=== PATIENT | male | born 1980 | race Two or more races ===

== ENCOUNTER 2016-11-17 12:00 | Emergency (ER) | payer MEDICAID ==
[2016-11-17 12:10] VITALS: BP 111/65
--- NOTE | 2016-11-17 12:42 | ER Document Report ---
ED Neck/Back Problem - General Chief Complaint: Back Pain Stated Complaint: LOWER BACK PAIN Time Seen by Provider: 11/17/16 12:25 Notes: 36 yo healthy male c/o constant mid back pain x 2 weeks. aggravated with bending. pt works as lead painter. denies trauma. no fever, no radiculopathy, no paresthesia, no bowel/bladder dysfunction. denies recent tattoos, injection, IV drug use. no hx/ cancer TRAVEL OUTSIDE OF THE [place] IN LAST 30 DAYS: No - HPI Patient complains to provider of: Pain Quality of pain: Achy Recent injury: No Associated symptoms: None. denies: Fever, Incontinence, Motor loss, Numbness/ tingling, Radiation to arm, Radiation to leg, Unable to urinate, Lower back pain - Related Data Allergies/Adverse Reactions: No Known Allergies Allergy (Verified 11/17/16 12:08) Past Medical History - General Information source: Patient - Social History Smoking Status: Current Every Day Smoker Cigarette use (# per day): Yes - 1/2 ppd Frequency of alcohol use: Social Drug Abuse: None Lives with: Family Family History: Reviewed & Not Pertinent Patient has suicidal ideation: No Patient has homicidal ideation: No Pulmonary Medical History: Denies: Hx Asthma, Hx Pneumonia Renal/ Medical History: Denies: Hx Peritoneal Dialysis - Immunizations Immunizations up to date: Yes Hx Diphtheria, Pertussis, Tetanus Vaccination: Yes Review of Systems - Review of Systems Constitutional: No symptoms reported EENT: No symptoms reported Cardiovascular: No symptoms reported Respiratory: No symptoms reported Gastrointestinal: No symptoms reported Genitourinary: No symptoms reported Male Genitourinary: No symptoms reported Musculoskeletal: See HPI Skin: No symptoms reported Hematologic/Lymphatic: No symptoms reported Neurological/Psychological: No symptoms reported Physical Exam - Vital signs Vitals: Temp Pulse Resp BP Pulse Ox 98.1 F 69 14 111/65 97 11/17/16 12:09 11/17/16 12:09 11/17/16 12:09 11/17/16 12:09 11/17/16 12:09 Interpretation: Normal - General General appearance: Appears well, Alert - HEENT Head: Normocephalic, Atraumatic Eyes: Normal Pupils: PERRL - Respiratory Respiratory status: No respiratory distress Chest status: Nontender Breath sounds: Normal Chest palpation: Normal - Cardiovascular Rhythm: Regular Heart sounds: Normal auscultation Murmur: No - Abdominal Inspection: Normal Distension: No distension Bowel sounds: Normal Tenderness: Nontender Organomegaly: No organomegaly - Back Back: Tender - mid thoracic spinal and paraspinal tenderness. neg SLT, neg heel /toe. walks without difficulty. able to change position without difficulty - Extremities General upper extremity: Normal inspection, Nontender, Normal color, Normal ROM , Normal temperature General lower extremity: Normal inspection, Nontender, Normal color, Normal ROM , Normal temperature, Normal weight bearing. No: Mariano's sign - Neurological Neuro grossly intact: Yes Cognition: Normal Orientation: AAOx4 [place] Coma Scale Eye Opening: Spontaneous [place] Coma Scale Verbal: Oriented [place] Coma Scale Motor: Obeys Commands [place] Coma Scale Total: 15 Speech: Normal Motor strength normal: LUE, RUE, LLE, RLE Sensory: Normal - Psychological Associated symptoms: Normal affect, Normal mood - Skin Skin Temperature: Warm Skin Moisture: Dry Skin Color: Normal Course - Re-evaluation Re-evalutation: 11/17/16 12:46 H&P c/w nonspecific acute low back pain. no neurologic deficits or red flags identified. no signs of cord compression, no hx/o metastatic disease, no fever , no trauma. low clinical suspicion for emergent condition. no emergent imaging indicated. will treat symptomatically. pt stable for discharge and agreeable with plan - Vital Signs Vital signs: Temp Pulse Resp BP Pulse Ox 98.1 F 69 14 111/65 97 11/17/16 12:09 11/17/16 12:09 11/17/16 12:09 11/17/16 12:09 11/17/16 12:09 Discharge - Discharge Clinical Impression: Mid back pain Condition: Stable Disposition: HOME, SELF-CARE Instructions: Ice Packs ([facility]), Warm Packs ([facility]), Low Back Pain ([facility]), Ultram ( [facility]), Ibuprofen (General) ([facility]), Muscle Relaxers ([facility]) Additional Instructions: Your history and physical are consistent with a mid back strain No xrays are indicated today Take medications as prescribed Consider chiropractic evaluation Follow up with your primary care Return to ER for any worsening Prescriptions: Ibuprofen [Motrin 800 Mg Tablet] 800 mg PO Q6H #20 tablet Methocarbamol [Robaxin 500 Mg Tablet] 1,000 mg PO Q6 #30 tablet Tramadol HCl [Ultram 50 mg Tablet] 50 mg PO ASDIR PRN #20 tablet PRN Reason: Forms: Return to Work Referrals: CRISTINE FRASER MD [NO LOCAL MD] - Follow up as needed
== END 2016-11-17 12:40 | disposition home or self-care (01) ==
LOC: ER 12:00
DX: M54.9 Dorsalgia, unspecified (principal); M54.5 Low back pain; F17.210 Nicotine dependence, cigarettes, uncomplicated
CPT/HCPCS: 99283

== ENCOUNTER 2017-02-17 12:56 | Emergency (ER) | payer MEDICAID ==
[2017-02-17] MEDS ORDERED: IBUPROFEN 800 MG TABLET PO ONE (14:33)
--- NOTE | 2017-02-17 14:34 | ER Document Report ---
ED Extremity Problem, Lower - General Chief Complaint: Foot Pain Stated Complaint: BACK/FOOT PAIN Time Seen by Provider: 02/17/17 13:59 Mode of Arrival: Ambulatory Information source: Patient Notes: 36-year-old male presents to ED for complaint of something hurting the bottom of his left foot. He states he does not remember stepping on anything or injuring it but it is slowly progressed to getting more more painful over the last few days. He also has chronic back pain for the last 3 years states she has been evaluated and was referred to orthopedics but they tell him he needs to go see his primary doctor first and he states he does not know who his primary doctor is. Patient is on Medicaid will check with patient access and give the patient his primary care doctor name and phone number. TRAVEL OUTSIDE OF THE [place] IN LAST 30 DAYS: No - HPI Patient complains to provider of: Pain Location: Back - Chronic, Foot - Left bottom of his foot front pad Occurred: Last week Onset/Duration: Gradual Quality of pain: Achy - Tonic backache, Sharp Severity: Moderate Pain Level: 4 Context: Other - Painful ambulation Recent injury: No Associated symptoms: Painful ambulation, Other - Chronic back pain Exacerbated by: Movement, Walking Relieved by: Nothing - Related Data Allergies/Adverse Reactions: No Known Allergies Allergy (Verified 02/17/17 13:00) Past Medical History - General Information source: Patient - Social History Smoking Status: Current Every Day Smoker Cigarette use (# per day): Yes - Half pack per day Chew tobacco use (# tins/day): No Smoking Education Provided: Yes - Less than 1 minute Frequency of alcohol use: Social Drug Abuse: denies: Marijuana - States he stopped smoking marijuana Occupation: [employer] Lives with: Spouse/Significant other Family History: Arthritis, Hypertension. denies: CAD, COPD, CVA, DM, Hyperlipidemia, Malignancy, Thyroid Disfunction Patient has suicidal ideation: No Patient has homicidal ideation: No - Past Medical History Cardiac Medical History: Reports: None Pulmonary Medical History: Reports: None EENT Medical History: Reports: None Neurological Medical History: Reports: None Endocrine Medical History: Reports: None Renal/ Medical History: Reports: None Malignancy Medical History: Reports None GI Medical History: Reports: None Musculoskeltal Medical History: Reports Hx Arthritis, Reports Hx Musculoskeletal Deformity - Chronic back pain, Reports Hx Musculoskeletal Trauma Skin Medical History: Reports None Psychiatric Medical History: Reports: None Traumatic Medical History: Reports: None Infectious Medical History: Reports: None Surgical Hx: Negative Past Surgical History: Reports: None - Immunizations Immunizations up to date: Yes Hx Diphtheria, Pertussis, Tetanus Vaccination: Yes Review of Systems - Review of Systems Constitutional: No symptoms reported EENT: No symptoms reported Cardiovascular: No symptoms reported Respiratory: No symptoms reported Gastrointestinal: No symptoms reported Genitourinary: No symptoms reported Male Genitourinary: No symptoms reported Musculoskeletal: Back pain - Chronic back pain, Other - Pain to the bottom of his left foot front pad. Skin: Other - Hard pads it is painful to the front pad of his left foot Hematologic/Lymphatic: No symptoms reported Neurological/Psychological: No symptoms reported -: Yes All other systems reviewed and negative Physical Exam - Vital signs Vitals: Temp Pulse Resp BP Pulse Ox 98.5 F 65 20 132/86 H 95 02/17/17 13:00 02/17/17 13:00 02/17/17 13:00 02/17/17 13:00 02/17/17 13:00 Interpretation: Normal - General General appearance: Appears well, Alert - HEENT Head: Normocephalic, Atraumatic Eyes: Normal Pupils: PERRL - Respiratory Respiratory status: No respiratory distress Chest status: Nontender Breath sounds: Normal Chest palpation: Normal - Cardiovascular Rhythm: Regular Heart sounds: Normal auscultation Murmur: No - Abdominal Inspection: Normal Distension: No distension Bowel sounds: Normal Tenderness: Nontender Organomegaly: No organomegaly - Back Back: Normal, Nontender - Extremities General upper extremity: Normal inspection, Nontender, Normal color, Normal ROM , Normal temperature General lower extremity: Normal inspection, Nontender, Normal color, Normal ROM , Normal temperature, Normal weight bearing. No: Mariano's sign Foot: Tender, No evidence of FB, Other - What appears to be a callus that is tender to touch on his left bottom of his foot front pad of his foot. No: Abrasion, Deformity, Ecchymosis, Edema, Instability, Laceration, Metatarsal compress. pain, Nail injury, Navicular tenderness, Puncture wound, Tender 5th metatarsal, Unable to bear weight - Neurological Neuro grossly intact: Yes Cognition: Normal Orientation: AAOx4 [place] Coma Scale Eye Opening: Spontaneous [place]iseo Coma Scale Verbal: Oriented [place] Coma Scale Motor: Obeys Commands [place] Coma Scale Total: 15 Speech: Normal Motor strength normal: LUE, RUE, LLE, RLE Sensory: Normal - Psychological Associated symptoms: Normal affect, Normal mood - Skin Skin Temperature: Warm Skin Moisture: Dry Skin Color: Normal Course - Re-evaluation Re-evalutation: 02/17/17 15:07 Will x-ray foot to ensure there is no foreign body noted. Patient was treated with ibuprofen. Patient was given name and number of his primary care which his family care and the phone number was written on a paper for the patient to follow-up. Patient to follow-up with his primary doctor to get a referral for his back specialist and also a senior mobile application developer for his pain in his foot and his back. Will review x-rays and discussed them with patient. - Vital Signs Vital signs: Temp Pulse Resp BP Pulse Ox 98.3 F 67 16 130/84 H 98 02/17/17 15:57 02/17/17 15:57 02/17/17 15:57 02/17/17 15:57 02/17/17 15:57 - Diagnostic Test Radiology reviewed: Image reviewed, Reports reviewed Discharge - Discharge Clinical Impression: Foot pain, left, Chronic back pain greater than 3 months duration Condition: Stable Disposition: HOME, SELF-CARE Additional Instructions: You were seen today for pain to your left bottom of the foot with no known injury. He states you have had calluses on your foot and toes in the past and the [employer] senior mobile application developer and had been removed. Try using [id number] pads for corns and calluses and follow-up with the senior mobile application developer for this pain to your left foot. You also have chronic back pain and had been referred to a back specialist. I have given you the name and number of your primary care doctor which is [facility]. Please call them tomorrow and schedule a appointment so that she can get referrals to podiatry and your back specialist. Chronic Pain Control Stress, inactivity, and depression make pain more severe regardless of the cause of the pain. Stress and poor physical condition can cause pain such as headaches and backache. Relaxation: Rest in a quiet place with your eyes closed for 20 minutes twice daily. Concentrate on a pleasant image, or simply "feel" your breathing. Clear your mind. Stress management: Deal with your "stressors." Either take action, or eliminate the stressor from your life. Don't let things hang over you. Accept those things you can't change. Nutrition: Eat small, balanced meals -- don't skip, don't overeat. Meals should be high-carbohydrate, low-sugar, low-fat. Exercise: Exercise helps painful conditions and eases stress. Get 30 minutes of moderate exercise, five days a week. Do an activity that does not flare your pain. Precautions: Pain which continues to disrupt daily activities, or which changes in nature, requires a medical evaluation. Pain Clinic referral is available. We do not manage chronic pain in the Emergency Department. We will try to appropriately help you through an acute flare of your chronic painful condition , but for on-going chronic pain that does not improve, you will need to see your private doctor or aircraft painter apprentice. We do not provide repeated medication management of chronic painful conditions. If you wish, we can provide the name of local pain management physicians. Chronic Back Pain Chronic back pain (pain persisting longer than three months) is a common problem. A medical evaluation can look for herniated disc, arthritis, osteoporosis, tumors, and infections. But at least half the time, there's no obvious treatable cause. Anxiety and depression tend to worsen back pain. Ibuprofen or other anti-inflammatory medicine can help. A heating pad, used for 15-20 minutes at a time, can ease pain. For this type of back pain, narcotic medicines should be avoided. Muscle relaxers are rarely helpful unless you're having spasms. Activity is important. Find an aerobic exercise program that your back can tolerate. Too much rest makes back pain worse. Specific back exercises are usually prescribed to strengthen the back and abdominal muscles. Often, a physical therapist can help. Avoid heavy lifting, working while bent over, or standing with both knees straight. Most back pain patients do better with a firm mattress. If new symptoms of a "herniated disc" (radiation of pain, numbness, or tingling down the back of the leg or weakness in the leg) occur, you should be re-examined. Anti-Inflammatory Medication You have received a prescription for an antiinflammatory agent. This is an excellent, safe drug for pain control. In addition, it has potent antiinflammatory effects which are beneficial, especially in the treatment of injuries, arthritis, or tendonitis. It's best to take this medicine with food. Persons with ulcer disease or allergy to aspirin should notify their physician of this before taking this drug. Take the medication exactly as prescribed. Don't take additional doses unless instructed to do so by your doctor. If you develop wheezing, shortness of breath, hives, faintness, stomach pain, vomiting, or dark black stools, return for re-evaluation at once. FOLLOW-UP CARE: If you have been referred to a physician for follow-up care, call the physician s office for an appointment as you were instructed or within the next two days. If you experience worsening or a significant change in your symptoms, notify the physician immediately or return to the Emergency Department at any time for re-evaluation. Prescriptions: Ibuprofen 600 mg PO Q6HP PRN #20 tablet PRN Reason: Forms: Elevated Blood Pressure, Smoking Cessation Education Referrals: HERMES BAZAN DPM [ACTIVE STAFF] - Follow up as needed
--- NOTE | 2017-02-17 15:26 | RADIOLOGY REPORT (SQ) ---
EXAM DESCRIPTION: FOOT LEFT COMPLETE COMPLETED DATE/TIME: 02/17/2017 3:00 pm REASON FOR STUDY: pain possible foreign body COMPARISON: None. NUMBER OF VIEWS: Three views. TECHNIQUE: AP, lateral and oblique radiographic images acquired of the left foot. LIMITATIONS: None. FINDINGS: MINERALIZATION: Normal. 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 BONES: No acute fracture or dislocation. No worrisome bone lesions. JOINTS: No effusions. SOFT TISSUES: There is focal soft tissue swelling near the left 5th metatarsal head. No radiopaque f oreign body is identified. No soft tissue gas. OTHER: No other significant finding. IMPRESSION: Soft tissue swelling at the left 5th metatarsal head/ MTP joint. No underlying radiopaq ue foreign body or soft tissue gas. TECHNICAL DOCUMENTATION: JOB ID: [id number] [employer]- All Rights Reserved
[2017-02-17 15:58] VITALS: BP 130/84
== END 2017-02-17 15:58 | disposition home or self-care (01) ==
LOC: ER 12:56
DX: M79.672 Pain in left foot (principal); G89.29 Other chronic pain; M54.9 Dorsalgia, unspecified; F17.210 Nicotine dependence, cigarettes, uncomplicated
CPT/HCPCS: 99283; 73630; J3490

== ENCOUNTER 2017-08-02 13:34 | Emergency (ER) | payer MEDICAID ==
[2017-08-02 13:40] VITALS: BP 123/89
[2017-08-02] MEDS ORDERED: CYCLOBENZAPRINE HCL 10 MG TABLET PO ONE (15:26)
[2017-08-02] MEDS ORDERED: IBUPROFEN 600 MG TABLET PO ONE (15:26)
--- NOTE | 2017-08-02 15:29 | ER Document Report ---
ED General - General Chief Complaint: Low Back Pain Stated Complaint: BACK INJURY Time Seen by Provider: 08/02/17 15:19 TRAVEL OUTSIDE OF THE [place] IN LAST 30 DAYS: No - HPI Notes: 36-year-old male with a history of intermittent back pain and previous injury presents with left lower back pain. Patient states yesterday he was lifting something heavy, noted some gradual onset of back pain, much worse today. Achy sharp, radiates down his left leg. No numbness or tingling, no bowel or bladder dysfunction. There is no history of malignancy, no history of bowel or bladder dysfunction. No fever or constitutional symptoms. No history of IV drug abuse. No other modifying factors, no other associated symptoms, no other provocative or palliative factors. - Related Data Allergies/Adverse Reactions: No Known Allergies Allergy (Verified 08/02/17 13:35) Past Medical History - Social History Smoking Status: Current Every Day Smoker Family History: Arthritis, Hypertension. denies: CAD, COPD, CVA, DM, Hyperlipidemia, Malignancy, Thyroid Disfunction Pulmonary Medical History: Denies: Hx Asthma, Hx Pneumonia Renal/ Medical History: Denies: Hx Peritoneal Dialysis Musculoskeltal Medical History: Reports Hx Arthritis, Reports Hx Musculoskeletal Deformity - Chronic back pain, Reports Hx Musculoskeletal Trauma - Immunizations Immunizations up to date: Yes Hx Diphtheria, Pertussis, Tetanus Vaccination: Yes Review of Systems - Review of Systems Notes: Review of systems as in the history of present illness, otherwise negative. Physical Exam - Vital signs Vitals: Temp Pulse Resp BP Pulse Ox 98.7 F 76 16 123/89 H 96 08/02/17 13:38 08/02/17 13:38 08/02/17 13:38 08/02/17 13:38 08/02/17 13:38 - Notes Notes: General: Well developed . HEENT: Normocephalic, atraumatic. Pupils equal round reactive to light. No JVD. Chest: No trauma. Respiratory: Good air exchange, normal excursion. Cardiac: Regular rhythm. No murmurs or gallops. Abdomen: Soft, benign. Nondistended. Nontender. Back: No asymmetry or gross abnormality. Moderate paralumbar tenderness on the left. Point vertebral tenderness. Motor: Grossly normal power and tone. Neurologic: Alert, nonfocal. Cranial nerves II-12 are intact. Sensation intact. Vascular: Well perfused. Normal peripheral pulses. Skin: No petechiae or purpura. Course - Re-evaluation Re-evalutation: 08/02/17 16:51 Well-appearing male with likely lumbar strain, consider a mild radiculopathy. No indication for x-rays, no high-risk features. Will treat with naproxen, Flexeril, hot soaks, heating pads and stretching. Outpatient follow-up. - Vital Signs Vital signs: Temp Pulse Resp BP Pulse Ox 98.7 F 76 16 123/89 H 96 08/02/17 13:38 08/02/17 13:38 08/02/17 13:38 08/02/17 13:38 08/02/17 13:38 Discharge - Discharge Clinical Impression: Back pain Qualifiers: Back pain location: low back pain Chronicity: acute Back pain laterality: left Sciatica presence: without sciatica Qualified Code(s): M54.5 - Low back pain Condition: Good Disposition: HOME, SELF-CARE Instructions: Low Back Pain ([facility]) Prescriptions: Cyclobenzaprine HCl [Flexeril 10 mg Tablet] 10 mg PO TIDP PRN #15 tab PRN Reason: Ibuprofen [Motrin 600 Mg Tablet] 600 mg PO TID #15 tablet Referrals: AMBER ARMSTRONG PA-C [Primary Care Provider] - Follow up as needed
== END 2017-08-02 15:40 | disposition home or self-care (01) ==
LOC: ER 13:34
DX: M54.5 Low back pain (principal); M79.605 Pain in left leg; X50.0XXA Overexertion from strenuous movement or load, initial encounter; F17.200 Nicotine dependence, unspecified, uncomplicated
CPT/HCPCS: 99283; J3490 ×2

== ENCOUNTER 2017-08-11 01:58 | Emergency (ER) | payer MEDICAID ==
[2017-08-11 02:25] VITALS: BP 127/80
--- NOTE | 2017-08-11 03:00 | RADIOLOGY REPORT (SQ) ---
EXAM DESCRIPTION: HAND RIGHT 3 VIEWS CLINICAL HISTORY: 36 years, Male, injury COMPARISON: None. NUMBER OF VIEWS: 3 Findings: Bones, joints, and soft tissues of HAND RIGHT 3 VIEWS appear intact. No significant effusion. IMPRESSION: No acute findings.
--- NOTE | 2017-08-11 03:46 | ER Document Report ---
ED General - General Chief Complaint: Hand Injury Stated Complaint: HAND INJURY Time Seen by Provider: 08/11/17 03:35 TRAVEL OUTSIDE OF THE [place] IN LAST 30 DAYS: No - HPI Patient complains to provider of: Right hand pain Notes: Patient coming in for evaluation of right hand pain. Patient is became angry tonight and punched the floor injuring his fifth digit on his right hand. Patient has obvious swelling that has placed ice on his hand according to the patient. Patient denies any other injuries denies any wrist pain elbow pain shoulder pain. Denies fevers chills nausea vomiting diarrhea resting currently upon my evaluation. - Related Data Allergies/Adverse Reactions: No Known Allergies Allergy (Verified 08/11/17 02:18) Past Medical History - Social History Smoking Status: Unknown if Ever Smoked Family History: Arthritis, Hypertension. denies: CAD, COPD, CVA, DM, Hyperlipidemia, Malignancy, Thyroid Disfunction Pulmonary Medical History: Denies: Hx Asthma, Hx Pneumonia Renal/ Medical History: Denies: Hx Peritoneal Dialysis Musculoskeltal Medical History: Reports Hx Arthritis, Reports Hx Musculoskeletal Deformity - Chronic back pain, Reports Hx Musculoskeletal Trauma - Immunizations Immunizations up to date: Yes Hx Diphtheria, Pertussis, Tetanus Vaccination: Yes Review of Systems - Review of Systems Constitutional: No symptoms reported EENT: No symptoms reported Cardiovascular: No symptoms reported Respiratory: No symptoms reported Gastrointestinal: No symptoms reported Genitourinary: No symptoms reported Male Genitourinary: No symptoms reported Musculoskeletal: Other - Right hand pain Skin: No symptoms reported Hematologic/Lymphatic: No symptoms reported Neurological/Psychological: No symptoms reported -: Yes All other systems reviewed and negative Physical Exam - Vital signs Vitals: Temp Pulse Resp BP Pulse Ox 98.0 F 96 14 127/80 H 97 08/11/17 02:24 08/11/17 02:24 08/11/17 02:24 08/11/17 02:24 08/11/17 02:24 Interpretation: Normal - General General appearance: Appears well, Alert - HEENT Head: Normocephalic, Atraumatic Eyes: Normal Pupils: PERRL - Respiratory Respiratory status: No respiratory distress Chest status: Nontender Breath sounds: Normal Chest palpation: Normal - Cardiovascular Rhythm: Regular Heart sounds: Normal auscultation Murmur: No - Abdominal Inspection: Normal Distension: No distension Bowel sounds: Normal Tenderness: Nontender Organomegaly: No organomegaly - Back Back: Normal, Nontender - Extremities General upper extremity: Nontender, Normal color, Normal ROM, Normal temperature. No: Normal inspection - Patient was swelling at the PIP DIP joint of the left fifth digit decreased range of motion due to pain. Capillary refill is intact General lower extremity: Normal inspection, Nontender, Normal color, Normal ROM , Normal temperature, Normal weight bearing. No: Mariano's sign - Neurological Neuro grossly intact: Yes Cognition: Normal Orientation: AAOx4 Eliseo Coma Scale Eye Opening: Spontaneous [place]ise[place] Coma Scale Verbal: Oriented [place] Coma Scale Motor: Obeys Commands [place] Coma Scale Total: 15 Speech: Normal Motor strength normal: LUE, RUE, LLE, RLE Sensory: Normal - Psychological Associated symptoms: Normal affect, Normal mood - Skin Skin Temperature: Warm Skin Moisture: Dry Skin Color: Normal Course - Re-evaluation Re-evalutation: 08/11/17 06:08 X-rays negative for any signs of acute fracture. Patient will be splinted follow-up with orthopedics as needed. Patient was given pain medication and discharged home. - Vital Signs Vital signs: Temp Pulse Resp BP Pulse Ox 98.0 F 96 14 127/80 H 97 08/11/17 02:24 08/11/17 02:24 08/11/17 02:24 08/11/17 02:24 08/11/17 02:24 Discharge - Discharge Clinical Impression: Injury of right hand Qualifiers: Encounter type: initial encounter Qualified Code(s): S69.91XA - Unspecified injury of right wrist, hand and finger(s), initial encounter Condition: Good Disposition: HOME, SELF-CARE Instructions: Ice Packs ([facility]), Oral Narcotic Medication ([facility]), Sprained Finger ([facility]) Additional Instructions: Your x-ray did not does not show any signs of a fracture. I would recommend that she follow-up with your primary care physician for referral to orthopedic physician or follow-up with the orthopedic physician provided. Take medication as prescribed he may also take Tylenol and Motrin for pain. Prescriptions: Tramadol HCl [Ultram 50 mg Tablet] 50 mg PO ASDIR PRN #10 tablet PRN Reason: Referrals: JEAN FERNANDEZ MD [ACTIVE STAFF] - Follow up as needed
== END 2017-08-11 04:17 | disposition home or self-care (01) ==
LOC: ER 01:58
DX: S69.91XA Unspecified injury of right wrist, hand and finger(s), initial encounter (principal); M79.641 Pain in right hand; M79.89 Other specified soft tissue disorders; W22.8XXA Striking against or struck by other objects, initial encounter
CPT/HCPCS: 99283

== ENCOUNTER 2019-09-25 22:18 | Emergency (ER) | payer MEDICAID ==
[2019-09-25] MEDS ORDERED: IBUPROFEN 800 MG TABLET PO ONE (23:26)
--- NOTE | 2019-09-25 23:27 | ER Document Report ---
ED Medical Screen (RME) - General Chief Complaint: Fall Stated Complaint: FALL,LOW BACK PAIN Time Seen by Provider: 09/25/19 23:23 Primary Care Provider: TICO LEE MD [Primary Care Provider] - Follow up as needed Information source: Patient Notes: Patient states that he slipped down 5 steps this morning. Patient states that the steps were wet. Patient complains of right hand and back pain. There was no head injury or loss of consciousness. Patient does report a history of chronic back pain. I have greeted and performed a rapid initial assessment of this patient. A comprehensive ED assessment and evaluation of the patient, analysis of test results and completion of the medical decision making process will be conducted by additional ED providers. TRAVEL OUTSIDE OF THE [place] IN LAST 30 DAYS: No - Related Data Allergies/Adverse Reactions: No Known Allergies Allergy (Verified 09/25/19 23:23) Past Medical History Pulmonary Medical History: Denies: Hx Asthma, Hx Pneumonia Renal/ Medical History: Denies: Hx Peritoneal Dialysis Musculoskeltal Medical History: Reports Hx Arthritis, Reports Hx Musculoskeletal Deformity - Chronic back pain, Reports Hx Musculoskeletal Trauma - Immunizations Immunizations up to date: Yes Hx Diphtheria, Pertussis, Tetanus Vaccination: Yes Physical Exam - Vital signs Vitals: Temp Pulse Resp BP Pulse Ox 98.2 F 88 20 140/82 H 96 09/25/19 22:22 09/25/19 22:22 09/25/19 22:22 09/25/19 22:22 09/25/19 22:22 - General General appearance: Appears well, Alert Notes: Right hand tenderness over fifth metacarpal, patient with thoracic and lower lumbar tenderness Course - Vital Signs Vital signs: Temp Pulse Resp BP Pulse Ox 98.2 F 88 20 140/82 H 96 09/25/19 22:22 09/25/19 22:22 09/25/19 22:22 09/25/19 22:22 09/25/19 22:22 Doctor's Discharge - Discharge Referrals: TICO LEE MD [Primary Care Provider] - Follow up as needed
--- NOTE | 2019-09-26 00:48 | RADIOLOGY REPORT (SQ) ---
EXAM DESCRIPTION: [facility]: XR LUMBAR SPINE ANTEROPOSTERIOR, LATERAL, AND OBLIQUES Views: 5 CLINICAL HISTORY: 38 years Male; Fell on steps, back and hand pain; COMPARISON: None. FINDINGS: Alignment is normal. No subluxation or significant loss of intervertebral disc height or vertebral body height. No evidence for acute fracture. No focal bone lesions. IMPRESSION: 1. Normal lumbar spine.
--- NOTE | 2019-09-26 00:57 | RADIOLOGY REPORT (SQ) ---
EXAM DESCRIPTION: Right hand [facility]: XR HAND 3 OR MORE VIEWS Views: 3 CLINICAL HISTORY: 38 years Male; Fell on steps, back and hand pain; 5th metacarpal COMPARISON: 08/11/2017 FINDINGS: Negative for acute fracture, dislocation, or radiopaque foreign body. IMPRESSION: 1. No acute findings.
--- NOTE | 2019-09-26 00:58 | RADIOLOGY REPORT (SQ) ---
EXAM DESCRIPTION: XR THORACIC SPINE 2 VIEWS COMPLETED DATE/TME: 09/25/2019 23:25 CLINICAL HISTORY: 38 years, Male, Fell on steps, back and hand pain COMPARISON: None. NUMBER OF VIEWS: 3 TECHNIQUE: Frontal and lateral views of the thoracic spine LIMITATIONS: None. FINDINGS: Vertebral body height and alignment is preserved. The disc spaces are maintained IMPRESSION: Negative exam copyright 2011 [employer]- All Rights Reserved
[2019-09-26] MEDS ORDERED: KETOROLAC TROMETHAMINE 60 MG/2 ML SDV IM ONE (02:03)
--- NOTE | 2019-09-26 02:08 | ER Document Report ---
ED Fall - General Chief Complaint: Back Injury Stated Complaint: FALL,LOW BACK PAIN Time Seen by Provider: 09/25/19 23:23 Primary Care Provider: TICO LEE MD [ACTIVE STAFF] - Follow up as needed Information source: Patient Notes: CHIEF COMPLAINT: Back pain right hand pain status post mechanical fall HPI: 38-year-old male presenting to the emergency department complaining of back pain and right hand pain status post a fall down 5 steps this morning that were wet. He was going down the steps when he slipped landing on his back and trying to brace himself with his hand. Denies wrist pain. Denies head injury denies neck pain denies incontinence of urine or bowel. ROS: See HPI - all other systems were reviewed and are otherwise negative Constitutional: no fever or recent illness Eyes: no drainage, no blurred vision ENT: no runny nose, no sore throat Cardiovascular: no chest pain Resp: no SOB, no cough GI: no vomiting, no diarrhea : no dysuria Integumentary: no rash Allergy: no hives Musculoskeletal: + extremity pain or swelling Neurological: no numbness/tingling, no weakness MEDICATIONS: I agree with the patient medications as charted by the RN. ALLERGIES: I agree with the allergies as charted by the RN. PAST MEDICAL HISTORY/PAST SURGICAL HISTORY: Reviewed and agree as charted by RN. SOCIAL HISTORY: Reviewed and agree as charted by RN. FAMILY HISTORY: No significant familial comorbid conditions directly related to patient complaint EXAM: Reviewed vital signs as charted by RN. CONSTITUTIONAL: Airway patent; alert and oriented and responds appropriately to questions. Well-appearing, well-nourished, mild distress secondary to pain HEAD: Normocephalic, atraumatic EYES: EOM intact; Conjunctivae clear, sclerae non-icteric ENT: Midface is stable without tenderness; normal nose; no bleeding; normal pharynx, normal voice, no stridor, no intraoral lacerations or dental trauma noted NECK: Trachea is midline; spine non-tender, no step-offs, good range of motion; no contusions or hematomas CARD: Normal symmetric pulses; RRR; no murmurs, no clicks, no rubs, no gallops RESP: Normal chest excursion with respiration; chest wall appears atraumatic without ecchymoses or crepitance; Breath sounds clear and equal bilaterally ABD/GI: Appears atraumatic without contusions or hematomas; non-distended, soft, non-tender, no rebound, no guarding; no palpable organomegaly or masses PELVIS: Stable, nontender BACK: The back appears atraumatic, no step-offs; mild tenderness along the lower thoracic upper lumbar back on palpation; there is no CVA tenderness EXT: Normal ROM in all joints; mild tenderness with soft tissue swelling to the lateral aspect of the right hand no snuffbox tenderness. Patient is able to fully flex and extend the fingers of the right hand as well as abduct the thumb. Sensation is intact in the fingertips with capillary refill less than 3 seconds; no cyanosis, no effusion SKIN: Normal color for age and race; warm; dry; good turgor; no apparent lesions NEURO: Moves all extremities equally; Motor and sensory function intact. Strength equal 5/5 bilateral lower extremities. Sensation intact and equal bilateral lower extremities. Straight leg raise is negative. No saddle anesthesia on exam. DTRs 2+ intact and equal bilateral lower extremities. PSYCH: The patient's mood and manner are appropriate. MDM: 38-year-old male with lower thoracic upper lumbar back pain right hand pain from a fall this morning that was mechanical. X-ray imaging does not show evidence of a fracture likely contusion, will treat patient's pain discharge home follow-up orthopedics TRAVEL OUTSIDE OF THE [place] IN LAST 30 DAYS: No - Related data Allergies/Adverse Reactions: No Known Allergies Allergy (Verified 09/25/19 23:23) Past Medical History - General Information source: Patient - Social History Smoking Status: Current Every Day Smoker Frequency of alcohol use: Social Drug Abuse: None Family History: Arthritis, Hypertension. denies: CAD, COPD, CVA, DM, Hyperlipidemia, Malignancy, Thyroid Disfunction Patient has homicidal ideation: No Pulmonary Medical History: Denies: Hx Asthma, Hx Pneumonia Renal/ Medical History: Denies: Hx Peritoneal Dialysis Musculoskeletal Medical History: Reports Hx Arthritis, Reports Hx Musculoskeletal Deformity - Chronic back pain, Reports Hx Musculoskeletal Trauma - Immunizations Immunizations up to date: Yes Hx Diphtheria, Pertussis, Tetanus Vaccination: Yes Physical Exam - Vital signs Vitals: Temp Pulse Resp BP Pulse Ox 98.2 F 88 20 140/82 H 96 09/25/19 22:22 09/25/19 22:22 09/25/19 22:22 09/25/19 22:22 09/25/19 22:22 Course - Vital Signs Vital signs: Temp Pulse Resp BP Pulse Ox 98.2 F 88 20 140/82 H 96 09/25/19 23:24 09/25/19 22:22 09/25/19 22:22 09/25/19 22:22 09/25/19 22:22 Discharge - Discharge Clinical Impression: Fall Qualifiers: Encounter type: initial encounter Qualified Code(s): W19.XXXA - Unspecified fall, initial encounter Contusion of back Qualifiers: Encounter type: initial encounter Laterality: unspecified laterality Qualified Code(s): S20.229A - Contusion of unspecified back wall of thorax, initial encounter Contusion of hand, right Qualifiers: Encounter type: initial encounter Qualified Code(s): S60.221A - Contusion of right hand, initial encounter Condition: Stable Disposition: HOME, SELF-CARE Additional Instructions: Warm heat to the back to help with pain and spasm. Take the medications as prescribed no driving if taking muscle relaxers. Do not use heavy equipment if using muscle relaxers. Ice to the hand to help with swelling and discomfort, use the Bryant wrap for comfort. Follow-up closely with orthopedics for further evaluation and treatment call for appointment Prescriptions: Cyclobenzaprine HCl [Flexeril 10 mg Tablet] 10 mg PO TIDP PRN #15 tab PRN Reason: Diclofenac Sodium [Voltaren 50 Mg Tablet.Dr] 50 mg PO BID #20 tablet.dr Forms: Return to Work Referrals: TICO LEE MD [ACTIVE STAFF] - Follow up as needed ANDREZ VICENTE MD [ACTIVE STAFF] - Follow up as needed
[2019-09-26 02:39] VITALS: BP 123/83
== END 2019-09-26 02:37 | disposition home or self-care (01) ==
LOC: ER 22:18
DX: S20.229A Contusion of unspecified back wall of thorax, initial encounter (principal); S60.221A Contusion of right hand, initial encounter; M54.5 Low back pain; M54.6 Pain in thoracic spine; M79.641 Pain in right hand; W10.9XXA Fall (on) (from) unspecified stairs and steps, initial encounter; F17.200 Nicotine dependence, unspecified, uncomplicated
CPT/HCPCS: 99283; 96372; 73130; 72110; 72070; J3490; J1885